=== PATIENT | female | born 1950 | race Caucasian/White ===

== ENCOUNTER → 2018-02-15 | Outpatient (CLI) | payer MEDICARE, OTHER ==
[~2018-02-15] MED LIST: ACETAMINOPHEN-1 EAC1 PO; ALPRAZOLAM 0.50.5 M1 PO; COREG3.125 MG PO; FOSAMAX 70 MG T70 MG PO; GABAPENTIN 100100 MG PO; HYDROCODONE-AP1 EAC6 PO; LEVOTHYROXINE 0.1 MG PO; NAPROSYN500 MG PO; NEXIUM40 MG PO; PAXIL10 MG; PREDNISONE50 MG PO; PROAIR HFA8.5 GM INH; VITUZ SOLUTION480 ML PO
== END ==
LOC: M.ULTRA 10:26
DX: R22.1 Localized swelling, mass and lump, neck (principal)

== ENCOUNTER 2018-03-16 09:13 | Emergency (ER) | payer MEDICARE, OTHER ==
[~2018-03-16] VITALS: Ht 152.4 cm; Wt 63.5 kg
[~2018-03-16 09:13] MED LIST changes: -FOSAMAX 70 MG T70 MG PO; -HYDROCODONE-AP1 EAC6 PO; -NAPROSYN500 MG PO
[2018-03-16] MEDS ORDERED: FOSAMAX 70 MG T70 MG PO (09:26)
[2018-03-16] MEDS ORDERED: NAPROSYN500 MG PO (10:46)
[2018-03-16] MEDS ORDERED: HYDROCODONE-AP1 EAC6 PO (10:46)
[2018-03-16 11:05] VITALS: BP 128/79
== END 2018-03-16 11:06 | disposition home or self-care (01) ==
LOC: M.ERS 09:13
DX: G56.01 Carpal tunnel syndrome, right upper limb (principal); M19.031 Primary osteoarthritis, right wrist; Z88.8 Allergy status to other drugs, medicaments and biological substances

== ENCOUNTER → 2018-06-08 | Outpatient (CLI) | payer MEDICARE, OTHER ==
[~2018-06-08] MED LIST changes: +FOSAMAX 70 MG T70 MG PO; +HYDROCODONE-AP1 EAC6 PO; +NAPROSYN500 MG PO
== END ==
LOC: M.MRI 08:04
DX: M47.26 Other spondylosis with radiculopathy, lumbar region (principal); M51.16 Intervertebral disc disorders with radiculopathy, lumbar region; M48.061 Spinal stenosis, lumbar region without neurogenic claudication

== ENCOUNTER 2019-02-06 10:04 | Emergency (ER) | payer MEDICARE, OTHER ==
[~2019-02-06] VITALS: Ht 157.5 cm; Wt 59.0 kg
[2019-02-06] MEDS ORDERED: ZOCOR20 MG PO (10:15)
[2019-02-06 10:40] LABS: INFLUENZA B ANTIGEN None Detected (None Detect)
[2019-02-06 10:58] LABS: ICTOTEST (BILI CONFIRMATORY) Negative (Negative); URINE BILIRUBIN 1+ (Negative); URINE BLOOD 2+ (Negative); URINE CLARITY CLEAR; URINE COLOR YELLOW; URINE GLUCOSE-RANDOM NEGATIVE (Negative); URINE KETONES 1+ (Negative); URINE LEUKOCYTES-REFLEX TRACE (Negative); URINE NITRITE-REFLEX NEGATIVE (Negative); URINE PROTEIN NEGATIVE (Negative); URINE UROBILINOGEN 0.2 E.U./dl (0.2-1.0)
[2019-02-06 11:07] VITALS: BP 126/88
[2019-02-06 11:07] LABS: BACTERIA-REFLEX 1-9 Few /HPF (None Seen); CASTS None Seen /LPF (None Seen); CRYSTALS None Seen /LPF (None Seen); MUCUS None Seen strn/LPF (None Seen); SQUAMOUS 4-10 Moderate /LPF (0-3); URINE RBC 3-10 Few /HPF (0-2); URINE WBC-REFLEX 0-5 Rare /HPF (0-5)
== END 2019-02-06 11:07 | disposition home or self-care (01) ==
LOC: M.ERS 10:04
PROVIDERS: Personal Emergency Response Attendant
DX: J10.1 Influenza due to other identified influenza virus with other respiratory manifestations (principal); Z88.6 Allergy status to analgesic agent; Z88.8 Allergy status to other drugs, medicaments and biological substances

== ENCOUNTER 2020-07-20 06:27 | Emergency (ER) | payer MEDICARE, OTHER ==
[~2020-07-20] VITALS: Ht 152.4 cm; Wt 59.0 kg
[~2020-07-20 06:27] MED LIST changes: +ZOCOR20 MG PO
[2020-07-20] MEDS ORDERED: PEPCID20 MG PO (07:24)
[2020-07-20] MEDS ORDERED: VISTARIL 25 MG25 M1 PO (07:24)
[2020-07-20 07:42] VITALS: BP 115/72
== END 2020-07-20 07:44 | disposition home or self-care (01) ==
LOC: M.ERS 06:27
DX: T78.49XA Other allergy, initial encounter (principal); L53.9 Erythematous condition, unspecified; Z88.6 Allergy status to analgesic agent; Z88.8 Allergy status to other drugs, medicaments and biological substances; W57.XXXA Bitten or stung by nonvenomous insect and other nonvenomous arthropods, initial encounter

== ENCOUNTER 2020-12-26 07:36 | Emergency (ER) | payer OTHER ==
[~2020-12-26] VITALS: Ht 152.4 cm; Wt 59.0 kg
[~2020-12-26 07:36] MED LIST changes: +PEPCID20 MG PO; +VISTARIL 25 MG25 M1 PO
[2020-12-26] MEDS ORDERED: DESYREL150 MG PO (07:56)
[2020-12-26 08:06] LABS: URINE BLOOD 2+ (Negative); URINE CLARITY CLEAR; URINE COLOR YELLOW; URINE GLUCOSE-RANDOM TRACE (Negative); URINE KETONES TRACE (Negative); URINE LEUKOCYTES-REFLEX TRACE (Negative); URINE PROTEIN TRACE (Negative)
[2020-12-26 08:08] LABS: ICTOTEST (BILI CONFIRMATORY) Positive (Negative); URINE BILIRUBIN 1+ (Negative); URINE NITRITE-REFLEX POSITIVE (Negative)
[2020-12-26 08:10] LABS: SQUAMOUS >10 Many /LPF (0-3)
[2020-12-26 08:11] LABS: URINE WBC-REFLEX 0-5 Rare /HPF (0-5)
[2020-12-26 08:12] LABS: CASTS None Seen /LPF (None Seen); CRYSTALS None Seen /LPF (None Seen); MUCUS >6 Heavy strn/LPF (None Seen); URINE RBC 0-2 Rare /HPF (0-2)
[2020-12-26] MEDS ORDERED: XANAX 0.5 MG0.5 MG PO (08:29)
[2020-12-26] MEDS ORDERED: AUGMENTIN 875-1 EACH PO (08:29)
[2020-12-26] MEDS ORDERED: PYRIDIUM200 MG PO (08:30)
[2020-12-26 08:36] VITALS: BP 142/96
== END 2020-12-26 08:37 | disposition home or self-care (01) ==
LOC: M.ERS 07:36
PROVIDERS: Family Medicine
DX: N39.0 Urinary tract infection, site not specified (principal); F41.9 Anxiety disorder, unspecified; I10 Essential (primary) hypertension; E03.9 Hypothyroidism, unspecified; Z88.6 Allergy status to analgesic agent; Z88.1 Allergy status to other antibiotic agents; Z88.8 Allergy status to other drugs, medicaments and biological substances

== ENCOUNTER 2021-03-28 09:42 | Emergency (ER) | payer OTHER ==
[~2021-03-28] VITALS: Ht 152.4 cm; Wt 62.6 kg
[~2021-03-28 09:42] MED LIST changes: +AUGMENTIN 875-1 EACH PO; +DESYREL150 MG PO; +PYRIDIUM200 MG PO; +XANAX 0.5 MG0.5 MG PO
[2021-03-28] MEDS ORDERED: ALPRAZOLAM XR3 MG PO (10:10)
[2021-03-28] MEDS ORDERED: XANAX 0.5 MG0.5 M1 PO (10:10)
[2021-03-28] MEDS ORDERED: NEURONTIN300 MG PO (10:11)
[2021-03-28 10:40] VITALS: BP 148/96
== END 2021-03-28 10:40 | disposition home or self-care (01) ==
LOC: M.ERS 09:42
DX: F41.0 Panic disorder [episodic paroxysmal anxiety] (principal); F32.9 Major depressive disorder, single episode, unspecified; I10 Essential (primary) hypertension; E03.9 Hypothyroidism, unspecified; Z79.899 Other long term (current) drug therapy; Z88.8 Allergy status to other drugs, medicaments and biological substances; Z88.1 Allergy status to other antibiotic agents

== ENCOUNTER 2021-04-12 11:50 | Emergency (ER) | payer OTHER ==
[~2021-04-12] VITALS: Ht 154.9 cm; Wt 63.5 kg
[~2021-04-12 11:50] MED LIST changes: +ALPRAZOLAM XR3 MG PO; +NEURONTIN300 MG PO; +XANAX 0.5 MG0.5 M1 PO
[2021-04-12 13:31] LABS: URINE BILIRUBIN NEGATIVE (Negative); URINE BLOOD NEGATIVE (Negative); URINE CLARITY CLEAR; URINE COLOR YELLOW; URINE GLUCOSE-RANDOM TRACE (Negative); URINE KETONES TRACE (Negative); URINE LEUKOCYTES-REFLEX NEGATIVE (Negative); URINE PROTEIN NEGATIVE (Negative)
[2021-04-12 13:36] LABS: URINE NITRITE-REFLEX POSITIVE (Negative)
[2021-04-12 13:40] LABS: CASTS None Seen /LPF (None Seen); CRYSTALS None Seen /LPF (None Seen); SQUAMOUS 0-3 Few /LPF (0-3); URINE RBC 0-2 Rare /HPF (0-2); URINE WBC-REFLEX 0-5 Rare /HPF (0-5)
[2021-04-12 14:05] LABS: ABSOLUTE MONOCYTES 0.6 thou/uL (0.0-1.2); ABSOLUTE NEUTROPHILS 5.4 thou/uL (1.6-8.1); BASOPHILS 0.6 %; EOSINOPHILS 0.1 %; HEMATOCRIT 40.8 % (37.0-47.0); LYMPHOCYTES 24.4 %; MCH 32.1 pg (26.0-34.0); MCHC 34.2 g/dL (28.0-37.0); MCV 93.9 fL (80.0-100.0); MPV 8.2 fl. (7.2-11.1); NUCLEATED RBCS 0 /100WBC; PLATELET COUNT* 252 thou/uL (150-400); POLYS 66.9 %; RBC 4.34 mil/uL (4.20-5.00); RDW-CV 13.2 % (10.5-14.5)
[2021-04-12 14:14] LABS: CALCIUM 9.1 mg/dL (8.5-10.1); CREATININE 0.9 mg/dL (0.6-1.3); POTASSIUM 3.7 mmol/L (3.5-5.1)
[2021-04-12 14:20] LABS: ALBUMIN 4.6 g/dL (3.4-5.0); TOTAL BILIRUBIN 0.3 mg/dL (<0.1-1.0); TOTAL PROTEIN 7.8 g/dL (6.4-8.2)
[2021-04-12] MEDS ORDERED: AUGMENTIN 875-1 EACH PO (14:34)
[2021-04-12 15:01] VITALS: BP 136/94
== END 2021-04-12 15:02 | disposition home or self-care (01) ==
LOC: M.ERS 11:50
PROVIDERS: Nurse Practitioner Family
DX: N39.0 Urinary tract infection, site not specified (principal); F41.9 Anxiety disorder, unspecified; F12.90 Cannabis use, unspecified, uncomplicated; I10 Essential (primary) hypertension; F32.9 Major depressive disorder, single episode, unspecified; Z88.6 Allergy status to analgesic agent; Z88.8 Allergy status to other drugs, medicaments and biological substances